=== PATIENT | female | born 1945 | race Caucasian/White ===

== ENCOUNTER → 2022-08-15 | Outpatient (CLI) | payer OTHER ==
[~2022-08-15] MED LIST: ALEN70TA65; AMLO-258; CARI350T; DULO-113; HYDR-4072; LOVA20TA3; [UNRECOGNIZED DRUG - CODE]
== END | disposition home or self-care (01) ==
LOC: RADMN 15:30
PROVIDERS: ATTEND Internal Medicine
DX: I67.82 Cerebral ischemia (principal); R90.82 White matter disease, unspecified; H70.10 Chronic mastoiditis, unspecified ear; I63.511 Cerebral infarction due to unspecified occlusion or stenosis of right middle cerebral artery; D64.9 Anemia, unspecified
CPT/HCPCS: 70551